=== PATIENT | female | born 1960 | race Caucasian/White ===

== ENCOUNTER → 2017-04-19 | Outpatient (CLI) | payer BC | LOC: OD 07:40 | PROVIDERS: ATTEND Family Medicine | DX: E87.5 Hyperkalemia (principal) | CPT/HCPCS: 36415; 84132 ==

== ENCOUNTER → 2017-10-05 | Outpatient (CLI) | payer BC ==
[2017-10-05 08:37] LABS: ABSOLUTE BASOPHILS # (AUTO) 0.1 10^3/uL (0.0-0.2); ABSOLUTE EOSINOPHILS # (AUTO) 0.1 10^3/uL (0.0-0.6); ABSOLUTE LYMPHOCYTES (AUTO) 2.3 10^3/uL (0.5-4.7); ABSOLUTE MONOCYTES (AUTO) 0.7 10^3/uL (0.1-1.4); ABSOLUTE NEUT (AUTO) 3.4 10^3/uL (1.7-8.2); BASOPHILS % (AUTO) 1.5 % (0-2); EOSINOPHILS % (AUTO) 1.7 % (0-6); HEMATOCRIT 40.6 % (36.0-47.0); LYMPHOCYTES % (AUTO) 34.7 % (13-45); MEAN CORPUSCULAR HGB CONC 34.3 g/dL (32.0-36.0); MEAN CORPUSCULAR VOLUME 85 fl (80-97); PLATELET COUNT 295 10^3/uL (150-450); RED BLOOD COUNT 4.81 10^6/uL (3.72-5.28); SEGMENTED NEUTROPHILS % (AUTO) 51.1 % (42-78); TOTAL CELLS COUNTED % (AUTO) 100 %; WHITE BLOOD COUNT 6.6 10^3/uL (4.0-10.5)
[2017-10-05 09:00] LABS: ALANINE AMINOTRANSFERASE 33 U/L (9-52); ALBUMIN 4.4 g/dL (3.5-5.0); ALKALINE PHOSPHATASE 73 U/L (38-126); ANION GAP 8 (5-19); ASPARTATE AMINO TRANSFERASE 24 U/L (14-36); BILIRUBIN,DIRECT 0.3 mg/dL (0.0-0.4); BILIRUBIN,TOTAL 0.4 mg/dL (0.2-1.3); BLOOD UREA NITROGEN 17 mg/dL (7-20); CALCIUM 9.7 mg/dL (8.4-10.2); CARBON DIOXIDE 29 mmol/L (22-30); CHLORIDE 105 mmol/L (98-107); CHOLESTEROL 274.33 mg/dL (0-200); GLUCOSE 92 mg/dL (75-110); SODIUM 142.2 mmol/L (137-145); TOTAL PROTEIN 7.2 g/dL (6.3-8.2); TRIGLYCERIDES 179 mg/dL (<150)
[2017-10-05 09:13] LABS: DIRECT LDL 171 mg/dL (<100)
[2017-10-05 09:17] LABS: VLDL CHOLESTEROL 35.8 mg/dL (10-31)
[2017-10-05 09:26] LABS: FREE T3 4.24 pg/mL (2.77-5.27); FREE T4 (FREE THYROXINE) 1.35 ng/dL (0.78-2.19)
[2017-10-05 09:40] LABS: THYROID STIMULATING HORMONE 2.01 uIU/mL (0.47-4.68)
[2017-10-05 10:43] LABS: IRON(TIBC) 136.1 ug/dL (37-170)
== END ==
LOC: OD 07:50
PROVIDERS: ATTEND Family Medicine
DX: E61.1 Iron deficiency (principal); E03.9 Hypothyroidism, unspecified; E78.2 Mixed hyperlipidemia; E55.9 Vitamin D deficiency, unspecified; Z79.899 Other long term (current) drug therapy
CPT/HCPCS: 36415; 80053; 80061; 82306; 83540; 83550; 84439; 84443; 84481; 85025

== ENCOUNTER → 2018-06-24 | Outpatient (CLI) | payer BC ==
[2018-06-24 09:01] LABS: CHOLESTEROL 301.48 mg/dL (0-200); IRON(TIBC) 66.6 ug/dL (37-170); TRIGLYCERIDES 158 mg/dL (<150)
[2018-06-24 09:14] LABS: DIRECT LDL 194 mg/dL (<100)
[2018-06-24 09:17] LABS: VLDL CHOLESTEROL 31.6 mg/dL (10-31)
[2018-06-24 09:20] LABS: FREE T3 3.58 pg/mL (2.77-5.27); FREE T4 (FREE THYROXINE) 1.24 ng/dL (0.78-2.19)
[2018-06-24 09:34] LABS: THYROID STIMULATING HORMONE 2.83 uIU/mL (0.47-4.68)
== END ==
LOC: OD 07:48
PROVIDERS: ATTEND Family Medicine
DX: E03.9 Hypothyroidism, unspecified (principal); E78.2 Mixed hyperlipidemia; E61.1 Iron deficiency; E55.9 Vitamin D deficiency, unspecified
CPT/HCPCS: 36415; 80061; 82306; 83540; 83550; 84439; 84443; 84481

== ENCOUNTER → 2018-09-20 | Outpatient (CLI) | payer BC ==
[2018-09-20 09:56] LABS: ABSOLUTE BASOPHILS # (AUTO) 0.1 10^3/uL (0.0-0.2); ABSOLUTE EOSINOPHILS # (AUTO) 0.1 10^3/uL (0.0-0.6); ABSOLUTE LYMPHOCYTES (AUTO) 2.1 10^3/uL (0.5-4.7); ABSOLUTE MONOCYTES (AUTO) 0.6 10^3/uL (0.1-1.4); ABSOLUTE NEUT (AUTO) 2.3 10^3/uL (1.7-8.2); BASOPHILS % (AUTO) 1.9 % (0-2); EOSINOPHILS % (AUTO) 1.4 % (0-6); HEMATOCRIT 41.2 % (36.0-47.0); HEMOGLOBIN 14.4 g/dL (12.0-15.5); LYMPHOCYTES % (AUTO) 40.5 % (13-45); MEAN CORPUSCULAR HEMOGLOBIN 29.9 pg (27.0-33.4); MEAN CORPUSCULAR VOLUME 86 fl (80-97); MONOCYTES % (AUTO) 11.4 % (3-13); PLATELET COUNT 283 10^3/uL (150-450); RED BLOOD COUNT 4.81 10^6/uL (3.72-5.28); RED CELL DISTRIBUTION WIDTH 12.7 % (11.5-14.0); SEGMENTED NEUTROPHILS % (AUTO) 44.8 % (42-78); TOTAL CELLS COUNTED % (AUTO) 100 %; WHITE BLOOD COUNT 5.1 10^3/uL (4.0-10.5)
[2018-09-20 10:18] LABS: CHOLESTEROL 287.48 mg/dL (0-200); TRIGLYCERIDES 171 mg/dL (<150)
[2018-09-20 10:29] LABS: DIRECT LDL 165 mg/dL (<100)
[2018-09-20 10:31] LABS: VLDL CHOLESTEROL 34.2 mg/dL (10-31)
[2018-09-20 10:35] LABS: FREE T3 4.97 pg/mL (2.77-5.27); FREE T4 (FREE THYROXINE) 2.14 ng/dL (0.78-2.19)
[2018-09-20 10:49] LABS: THYROID STIMULATING HORMONE 0.02 uIU/mL (0.47-4.68)
== END ==
LOC: OD 08:17
PROVIDERS: ATTEND Family Medicine
DX: E03.9 Hypothyroidism, unspecified (principal); E78.2 Mixed hyperlipidemia
CPT/HCPCS: 36415; 80061; 84439; 84443; 84481; 85025

== ENCOUNTER → 2018-12-24 | Outpatient (CLI) | payer BC ==
[2018-12-24 09:40] LABS: ALANINE AMINOTRANSFERASE 26 U/L (9-52); ALBUMIN 4.9 g/dL (3.5-5.0); ALKALINE PHOSPHATASE 69 U/L (38-126); ANION GAP 9 (5-19); ASPARTATE AMINO TRANSFERASE 23 U/L (14-36); BILIRUBIN,DIRECT 0.4 mg/dL (0.0-0.4); BILIRUBIN,TOTAL 0.6 mg/dL (0.2-1.3); BLOOD UREA NITROGEN 24 mg/dL (7-20); CALCIUM 10.3 mg/dL (8.4-10.2); CARBON DIOXIDE 28 mmol/L (22-30); CHLORIDE 104 mmol/L (98-107); GLUCOSE 104 mg/dL (75-110); IRON(TIBC) 132.2 ug/dL (37-170); SODIUM 141.1 mmol/L (137-145); TOTAL PROTEIN 7.9 g/dL (6.3-8.2); TRIGLYCERIDES 238 mg/dL (<150)
[2018-12-24 09:41] LABS: POTASSIUM 5.6 mmol/L (3.6-5.0)
[2018-12-24 09:52] LABS: DIRECT LDL 192 mg/dL (<100)
[2018-12-24 09:56] LABS: VLDL CHOLESTEROL 47.6 mg/dL (10-31)
[2018-12-24 09:58] LABS: FREE T3 3.53 pg/mL (2.77-5.27); FREE T4 (FREE THYROXINE) 1.22 ng/dL (0.78-2.19)
[2018-12-24 10:12] LABS: THYROID STIMULATING HORMONE 1.9 uIU/mL (0.47-4.68)
== END ==
LOC: OD 08:20
PROVIDERS: ATTEND Family Medicine
DX: E61.1 Iron deficiency (principal); E78.2 Mixed hyperlipidemia; E03.9 Hypothyroidism, unspecified
CPT/HCPCS: 36415; 80053; 80061; 83540; 83550; 84439; 84443; 84481

== ENCOUNTER → 2019-04-13 | Outpatient (CLI) | payer BC ==
[2019-04-13 08:50] LABS: APPEARANCE,URINE CLEAR; BILIRUBIN,URINE NEGATIVE (NEGATIVE); COLOR,URINE STRAW; GLUCOSE, URINE NEGATIVE (NEGATIVE); KETONES,URINE NEGATIVE (NEGATIVE); LEUKOCYTE ESTERASE,URINE NEGATIVE (NEGATIVE); NITRITE,URINE NEGATIVE (NEGATIVE); PROTEIN,URINE NEGATIVE (NEGATIVE); URINE SPECIFIC GRAVITY 1.003; UROBILINOGEN,URINE NEGATIVE mg/dL (<2.0)
[2019-04-13 09:15] LABS: ABSOLUTE EOSINOPHILS # (AUTO) 0.1 10^3/uL (0.0-0.6); ABSOLUTE LYMPHOCYTES (AUTO) 1.8 10^3/uL (0.5-4.7); ABSOLUTE MONOCYTES (AUTO) 0.7 10^3/uL (0.1-1.4); ABSOLUTE NEUT (AUTO) 2.7 10^3/uL (1.7-8.2); BASOPHILS % (AUTO) 0.9 % (0-2); EOSINOPHILS % (AUTO) 1.8 % (0-6); HEMATOCRIT 41.2 % (36.0-47.0); HEMOGLOBIN 14.1 g/dL (12.0-15.5); LYMPHOCYTES % (AUTO) 33.5 % (13-45); MEAN CORPUSCULAR HEMOGLOBIN 29.3 pg (27.0-33.4); MEAN CORPUSCULAR HGB CONC 34.2 g/dL (32.0-36.0); MEAN CORPUSCULAR VOLUME 86 fl (80-97); MONOCYTES % (AUTO) 12.7 % (3-13); PLATELET COUNT 266 10^3/uL (150-450); RED BLOOD COUNT 4.81 10^6/uL (3.72-5.28); RED CELL DISTRIBUTION WIDTH 12.9 % (11.5-14.0); SEGMENTED NEUTROPHILS % (AUTO) 51.1 % (42-78); TOTAL CELLS COUNTED % (AUTO) 100 %; WHITE BLOOD COUNT 5.3 10^3/uL (4.0-10.5)
[2019-04-13 09:42] LABS: ANION GAP 7 (5-19); BLOOD UREA NITROGEN 17 mg/dL (7-20); CALCIUM 10.2 mg/dL (8.4-10.2); CARBON DIOXIDE 31 mmol/L (22-30); CHLORIDE 102 mmol/L (98-107); GLUCOSE 96 mg/dL (75-110); POTASSIUM 5.5 mmol/L (3.6-5.0)
--- NOTE | 2019-04-13 10:09 | RADIOLOGY REPORT (SQ) ---
EXAM DESCRIPTION: CHEST PA/LATERAL COMPLETED DATE/TIME: 04/13/2019 8:50 am REASON FOR STUDY: PRE-OP COMPARISON: Two-view chest 04/12/2017 EXAM PARAMETERS: NUMBER OF VIEWS: two views TECHNIQUE: Digital Frontal and Lateral radiographic views of the chest acquired. RADIATION DOSE: NA LIMITATIONS: none FINDINGS: LUNGS AND PLEURA: No opacities, masses or pneumothorax. No pleural effusion. MEDIASTINUM AND HILAR STRUCTURES: No masses or contour abnormalities. HEART AND VASCULAR STRUCTURES: Heart normal size. No evidence for failure. BONES: No acute findings. HARDWARE: None in the chest. OTHER: No other significant finding. IMPRESSION: NO SIGNIFICANT RADIOGRAPHIC FINDING IN THE CHEST. TECHNICAL DOCUMENTATION: JOB ID: [id number] [employer]- All Rights Reserved Reading location - IP/workstation name: [email or web address]
--- NOTE | 2019-04-13 21:45 | EKG REPORT ---
SEVERITY:- NORMAL ECG - SINUS RHYTHM : Confirmed by: Nai Marks MD 13-Apr-2019 21:45:24
== END ==
LOC: OD 07:57
PROVIDERS: ATTEND Orthopaedic Surgery
DX: Z01.810 Encounter for preprocedural cardiovascular examination (principal); Z01.811 Encounter for preprocedural respiratory examination; Z01.812 Encounter for preprocedural laboratory examination; M17.11 Unilateral primary osteoarthritis, right knee
CPT/HCPCS: 36415; 71046; 80048; 81001; 85025; 93005; 93010

== ENCOUNTER 2019-05-08 05:35 | Inpatient (IN) | payer BC ==
[~2019-05-08 05:35] MED LIST: BUPIVACAINE INJ/PF LIPOSOME/PF 266 MG/20 ML SDV INJ PRN; CEFAZOLIN INJ 1 GM VIAL IV PRN; IBUPROFEN 800 MG in NORMAL SALINE 250 ML IV PRN; LACTATED RINGERS 1000 ML IV PRN; LIDOCAINE 0.5% INJ-PF (5 MG/ML) 50 ML SDV SUBCUT PRN; OXYCODONE HCL SR 10 MG TABLET PO PRN; PANTOPRAZOLE SODIUM 20 MG TABLET.DR PO PRN; VANCOMYCIN HCL 1,000 MG in DEXTROSE 5%-WATER 250 ML IV PRN; VANCOMYCIN HCL INJ 1000 MG VIAL ONE
[2019-05-08] MEDS ORDERED: TRANEXAMIC ACID INJ/PF 1,000 MG/10 ML SDV ONE ×2 (06:19→09:47)
[2019-05-08] MEDS ORDERED: MIDAZOLAM 2 MG/2 ML INJ ONE ×2 (06:19→09:03)
[2019-05-08] MEDS ORDERED: ONDANSETRON HCL INJ/PF 4 MG/2 ML SDV ONE (06:19)
[2019-05-08] MEDS ORDERED: OXYCODONE HCL SR 10 MG TABLET PO ONE (06:19)
[2019-05-08] MEDS ORDERED: PANTOPRAZOLE SODIUM 20 MG TABLET.DR PO ONE (06:19)
[2019-05-08] MEDS ORDERED: CEFAZOLIN INJ 1 GM VIAL ONE (06:19)
[2019-05-08] MEDS ORDERED: DEXAMETHASONE SOD PHOSPHATE INJ 4 MG/1 ML VIAL ONE (06:19)
[2019-05-08] MEDS ORDERED: PROPOFOL INJ 200 MG/20 ML VIAL IV ONE ×2 (06:19→09:03)
[2019-05-08] MEDS ORDERED: FENTANYL CITRATE INJ/PF 100 MCG/2 ML AMPUL ONE (06:19)
[2019-05-08] MEDS ORDERED: LIDOCAINE 0.5% INJ-PF (5 MG/ML) 50 ML SDV ONE (06:22)
[2019-05-08] MEDS ORDERED: BUPIVACAINE HCL 0.25 % INJ/PF (2.5 MG/1 ML) 30 ML VIAL ONE (07:11)
[2019-05-08] MEDS ORDERED: ONDANSETRON HCL INJ/PF 4 MG/2 ML SDV IV PRN (08:01)
[2019-05-08] MEDS ORDERED: FENTANYL CITRATE INJ/PF 100 MCG/2 ML AMPUL IV PRN ×3 (08:01)
[2019-05-08] MEDS ORDERED: PROMETHAZINE HCL INJ 25 MG/1 ML VIAL IV PRN ×2 (08:01)
[2019-05-08] MEDS ORDERED: MORPHINE SULFATE 10 MG/ML INJ IV PRN (08:01)
[2019-05-08] MEDS ORDERED: DIPHENHYDRAMINE HCL 50 MG/ML VIAL IV PRN ×2 (08:01→08:33)
[2019-05-08] MEDS ORDERED: MEPERIDINE HCL/PF INJ 25 MG/1 ML DISP.SYRIN IV PRN (08:01)
[2019-05-08] MEDS ORDERED: BUPIVACAINE HCL 0.25 % INJ/PF (2.5 MG/1 ML) 30 ML VIAL INJ ONE (08:29)
[2019-05-08] MEDS ORDERED: FLUTICASONE NASAL SPRAY 50 MCG/SPRY 120 SPRAY/16 GM NAREB PRN (08:32)
[2019-05-08] MEDS ORDERED: MAG HYDROX/AL HYDROX/SIMETH SUSP 30 ML UDCUP PO PRN (08:33)
[2019-05-08] MEDS ORDERED: ONDANSETRON 4 MG TAB.RAPDIS PO PRN (08:33)
[2019-05-08] MEDS ORDERED: RINGERS SOLUTION,LACTATED 1,000 ML IV PRN (08:33)
--- NOTE | 2019-05-08 08:38 | Operative Report ---
Operative Report DATE OF SURGERY: 05/08/19 PREOPERATIVE DIAGNOSIS: Right knee arthritis OPERATION: Right knee arthroplasty SURGEON: JEANNIE QUESADA ANESTHESIA: Spinal TISSUE REMOVED OR ALTERED: Bone to pathology ESTIMATED BLOOD LOSS: 50 PROCEDURE: Implants used: Femur: Size 4 [place] triathlon uncemented cruciate retaining femur Tibia: 4 tibia uncemented Tibial liner: 11 mm CS insert Patella: 32 mm oval uncemented patella Procedure with the patient supine on the operating table the right the limb is prepped and draped in a sterile fashion. The limb was elevated for exsanguination and the tourniquet inflated to 280 torr. A standard midline median parapatellar approach the knee is taken. Access is gained to the femoral canal through the intercondylar notch. Intramedullary alignment instrumentation used to resect 10 mm of distal femur in 5 of valgus. Sizing guide indicated a size 4 femur. Appropriate cutting jig is then used to fashion anterior posterior and chamfer cuts. A trial reduction femurs performed and this is judged to be adequate. Attention was next turned to the tibia. Using an extra medullary alignment system 9 millimeters was resected off the lateral tibial plateau. This is sized to a size 4 tibia. A trial reduction was now performed with a 4 femur and a 4 tibia using a 11 millimeters spacer. It is full extension and central pat ellofemoral tracking. The articular surface the patella was next resected using an oscillating saw. All trial implants were removed. The above implants are impacted into position. The tourniquet was deflated hemostasis obtained the wound is then closed in layers using interrupted Vicryl followed by eliseo. A sterile compressive dressing was applied and the patient returned to recovery room in satisfactory condition.
--- NOTE | 2019-05-08 09:34 | RADIOLOGY REPORT (SQ) ---
EXAM DESCRIPTION: KNEE RIGHT 2 VIEWS COMPLETED DATE/TIME: 05/08/2019 9:16 am REASON FOR STUDY: Post OP -Long Cassette in PACU M17.11 UNILATERAL PRIMARY OSTEOARTHRITIS, RIGHT KN EE COMPARISON: None. NUMBER OF VIEWS: Two views. TECHNIQUE: AP and lateral radiographic images acquired of the right knee. LIMITATIONS: None. FINDINGS: MINERALIZATION: Normal. BONES: Status post TKA; the hardware is in appropriate alignment. There is no periprostatic fracture . JOINT: See below. SOFT TISSUES: The subcutaneous and intra-articular air is expected in the immediate postoperative per iod. OTHER: No other finding. IMPRESSION: Status post right TKA with expected immediate postoperative findings. TECHNICAL DOCUMENTATION: JOB ID: [id number] [employer]- All Rights Reserved Reading location - IP/workstation name: [email or web address]
[2019-05-08] MEDS ORDERED: VITAMIN D3 PO SCH (10:00)
[2019-05-08] MEDS ORDERED: (PENDING PHARMACY ID) (Cholecalciferol (Vitamin D3) [Vitamin D3] 1,000 UNIT) PO SCH (10:00)
[2019-05-08] MEDS ORDERED: CALCIUM CITRATE PO SCH (10:00)
[2019-05-08] MEDS ORDERED: (PENDING PHARMACY ID) (Krill Oil [Krill Oil] 500 MG) PO SCH (10:00)
[2019-05-08] MEDS: OXYCODONE HCL IR 5 MG TABLET PO PRN ×2 (12:11→18:14)
[2019-05-08] MEDS ORDERED: IBUPROFEN INJ 800 MG/8 ML VIAL IV SCH (14:00)
[2019-05-08] MEDS: IBUPROFEN 800 MG in NORMAL SALINE 250 ML IV SCH (14:40)
[2019-05-08] MEDS: OXYCODONE HCL SR 10 MG TABLET PO SCH (17:03)
[2019-05-08] MEDS: SENNOSIDES/DOCUSATE 8.6-50 MG 1 EACH TABLET PO SCH (17:03)
[2019-05-08] MEDS ORDERED: ASPIRIN 81 MG TABLET, ENT COATED PO SCH (18:00)
[2019-05-08] MEDS ORDERED: VANCOMYCIN HCL 1,000 MG in DEXTROSE 5%-WATER 250 ML IV ONE (21:00)
[2019-05-08] MEDS: OXYBUTYNIN CHLORIDE 5 MG TABLET PO SCH (21:40)
[2019-05-09] MEDS: OXYCODONE HCL IR 5 MG TABLET PO PRN ×2 (00:20→11:36)
[2019-05-09] MEDS: IBUPROFEN 800 MG in NORMAL SALINE 250 ML IV SCH ×2 (00:48→05:33)
[2019-05-09 05:08] LABS: HEMATOCRIT 34.7 % (36.0-47.0); HEMOGLOBIN 11.8 g/dL (12.0-15.5); MEAN CORPUSCULAR HEMOGLOBIN 29.7 pg (27.0-33.4); MEAN CORPUSCULAR VOLUME 87 fl (80-97); PLATELET COUNT 181 10^3/uL (150-450); RED BLOOD COUNT 3.98 10^6/uL (3.72-5.28); RED CELL DISTRIBUTION WIDTH 13.2 % (11.5-14.0); WHITE BLOOD COUNT 6.8 10^3/uL (4.0-10.5)
[2019-05-09 05:28] LABS: ANION GAP 6 (5-19); BLOOD UREA NITROGEN 8 mg/dL (7-20); CALCIUM 8.7 mg/dL (8.4-10.2); CARBON DIOXIDE 25 mmol/L (22-30); CHLORIDE 105 mmol/L (98-107); GLUCOSE 121 mg/dL (75-110); POTASSIUM 3.7 mmol/L (3.6-5.0)
[2019-05-09] MEDS: OXYCODONE HCL SR 10 MG TABLET PO SCH (05:32)
[2019-05-09] MEDS ORDERED: PANTOPRAZOLE SODIUM 40 MG TABLET.DR PO SCH (06:00)
[2019-05-09] MEDS ORDERED: LEVOTHYROXINE SODIUM 0.1 MG TABLET PO SCH (06:00)
--- NOTE | 2019-05-09 07:04 | PDOC DISCHARGE SUMMARY ---
Impression - Admit/DC Date/PCP Admission Date/Primary Care Provider: 05/08/19 05:35 RAMESH SOTO MD Discharge Date: 05/09/19 - Discharge Diagnosis (1) Arthritis of right knee Is this a current diagnosis for this admission?: Yes - Additional Information Resuscitation Status: Full Code Discharge Diet: Regular Discharge Activity: Balance Activity w/Rest, No Driving, No tub bath Referrals: RAMESH SOTO MD [Primary Care Provider] - JEANNIE QUESADA MD [ACTIVE STAFF] - 05/23/19 11:00 am Home Medications: Calcium Citrate/Vitamin D3 [Citracal + D Maximum Caplet] 1 tab PO DAILY 04/12/17 Cholecalciferol (Vitamin D3) [Vitamin D3] 1,000 unit PO DAILY 04/12/17 Krill Oil 500 mg PO DAILY 04/12/17 Levothyroxine Sodium 100 mcg PO Q6AM 04/12/17 Oxybutynin Chloride [Oxybutynin Chloride ER] 10 mg PO DAILY 04/12/17 Tramadol HCl 50 mg PO Q6HP PRN 04/12/17 Multivitamin [Tab-A-Robbie (Multiple Vitamin) Tablet] 1 tab PO DAILY 05/07/17 Fluticasone Propionate [Flonase Nasal [place] 50 Mcg/[place] 16 gm] 2 spray NAREB DAILYP PRN 05/10/17 History of Present Illiness History of Present Illness: PAULO MARTEL is a 58 year old female status post left knee arthroplasty in the distant past now with progressive right knee pain and functional disability second osteoarthritis. Patient is admitted for elective left knee arthroplasty. Hospital Course Hospital Course: Patient is admitted through the operating where she undergoes an uncomplicated right knee arthroplasty. She is returned to floor in satisfactory condition. She makes excellent progress with physical therapy and the day of surgery. She is ready for discharge the following morning. Physical Exam Vital Signs: Temp Pulse Resp BP Pulse Ox 37.1 C 61 18 121/57 L 97 05/09/19 00:00 05/09/19 00:00 05/09/19 00:00 05/09/19 00:00 05/09/19 00:00 Intake & Output 05/08/19 05/09/19 05/10/19 06:59 06:59 06:59 Intake Total 0 3400 Output Total 40 Balance 0 3360 Weight 81.8 kg General appearance: PRESENT: no acute distress, mild distress Head exam: PRESENT: normocephalic Respiratory exam: PRESENT: unlabored Cardiovascular exam: PRESENT: RRR Pulses: PRESENT: +1 pedal pulses bilateral GI/Abdominal exam: PRESENT: soft Rectal exam: PRESENT: deferred Musculoskeletal exam: PRESENT: other - Right knee compressive dressing removed on the first postoperative morning. Underlying OpSite dressings clean dry and intact. Minimal pedal edema. Distal neurovascular examination is intact. Neurological exam: PRESENT: alert, awake, oriented to person, oriented to place, oriented to time, oriented to situation. ABSENT: motor sensory deficit Psychiatric exam: PRESENT: appropriate affect, normal mood. ABSENT: homicidal ideation, suicidal ideation Skin exam: PRESENT: dry, intact, warm. ABSENT: cyanosis, rash Results Laboratory Results: WBC 6.8 10^3/uL (4.0-10.5) 05/09/19 04:36 RBC 3.98 10^6/uL (3.72-5.28) 05/09/19 04:36 Hgb 11.8 g/dL (12.0-15.5) L 05/09/19 04:36 Hct 34.7 % (36.0-47.0) L 05/09/19 04:36 MCV 87 fl (80-97) 05/09/19 04:36 MCH 29.7 pg (27.0-33.4) 05/09/19 04:36 MCHC 34.0 g/dL (32.0-36.0) 05/09/19 04:36 RDW 13.2 % (11.5-14.0) 05/09/19 04:36 Plt Count 181 10^3/uL (150-450) 05/09/19 04:36 Sodium 136.4 mmol/L (137-145) L 05/09/19 04:36 Potassium 3.7 mmol/L (3.6-5.0) 05/09/19 04:36 Chloride 105 mmol/L (98-107) 05/09/19 04:36 Carbon Dioxide 25 mmol/L (22-30) 05/09/19 04:36 Anion Gap 6 (5-19) 05/09/19 04:36 BUN 8 mg/dL (7-20) 05/09/19 04:36 Creatinine 0.56 mg/dL (0.52-1.25) 05/09/19 04:36 Est GFR ( Amer) > 60 (>60) 05/09/19 04:36 Est GFR (MDRD) Non-Af > 60 (>60) 05/09/19 04:36 Glucose 121 mg/dL (75-110) H 05/09/19 04:36 Calcium 8.7 mg/dL (8.4-10.2) 05/09/19 04:36 Impressions: Knee X-Ray 05/08/19 08:35 IMPRESSION: Status post right TKA with expected immediate postoperative findings. Plan Plan of Treatment: Patient be discharged home on a weightbearing as tolerated basis with home hea lth services and DME. Follow-up with Dr. Tali Orozco Lund for surgery in 2 weeks for staple removal. Stroke Is this a Stroke Patient?: No Stroke Pt being discharged on Anti-thrombolytic therapy?: Yes Acute Heart Failure - Is this a Heart Failure Patient?: No
[2019-05-09] MEDS ORDERED: CALCIUM CARBONATE 250 MG/VITAMIN D3 125 UNIT TABLET PO SCH (08:00)
[2019-05-09] MEDS ORDERED: MULTIVITAMIN TABLET PO SCH (10:00)
[2019-05-09] MEDS ORDERED: CHOLECALCIFEROL (D3) 1,000 UNIT (25 MCG) TABLET PO SCH (10:00)
[2019-05-09] MEDS ORDERED: PRENATAL VITAMIN W DHA CAPSULE PO SCH (10:00)
[2019-05-09] MEDS: SENNOSIDES/DOCUSATE 8.6-50 MG 1 EACH TABLET PO SCH (10:45)
[2019-05-09] MEDS: OXYBUTYNIN CHLORIDE 5 MG TABLET PO SCH (10:45)
[2019-05-09 13:06] VITALS: BP 121/57
== END 2019-05-09 13:40 | disposition home health service (06) | DRG 470 ==
LOC: INOR 05:35 → 4S 10:26
PROVIDERS: ADMIT Orthopaedic Surgery; ATTEND Orthopaedic Surgery
PROC: 0SRC0JA Replacement of Right Knee Joint with Synthetic Substitute, Uncemented, Open Approach (ICD-10-PCS; principal; 2019-05-08 07:30)
DX: M17.11 Unilateral primary osteoarthritis, right knee (principal); K21.9 Gastro-esophageal reflux disease without esophagitis; E03.9 Hypothyroidism, unspecified; Z87.891 Personal history of nicotine dependence; Z96.652 Presence of left artificial knee joint; M54.5 Low back pain; Z79.899 Other long term (current) drug therapy
CPT/HCPCS: 01402; 36415; 80048; 84132; 85027; 88305; 88311; 94799; C1713; C1776; J0690; J1100; J1741; J2250; J2405; J2704; J3010; J3370; J3490; J7050; J7060; J7120; S0119

== ENCOUNTER 2019-05-16 22:12 | Emergency (ER) | payer BC ==
[2019-05-16 22:58] LABS: ABSOLUTE BASOPHILS # (AUTO) 0.1 10^3/uL (0.0-0.2); ABSOLUTE LYMPHOCYTES (AUTO) 0.9 10^3/uL (0.5-4.7); ABSOLUTE MONOCYTES (AUTO) 1.3 10^3/uL (0.1-1.4); BASOPHILS % (AUTO) 0.5 % (0-2); EOSINOPHILS % (AUTO) 0.1 % (0-6); HEMATOCRIT 36.4 % (36.0-47.0); HEMOGLOBIN 12.7 g/dL (12.0-15.5); INTERNATIONAL RATION (INR) 0.95; LYMPHOCYTES % (AUTO) 6.4 % (13-45); MEAN CORPUSCULAR HEMOGLOBIN 29.8 pg (27.0-33.4); MEAN CORPUSCULAR HGB CONC 34.8 g/dL (32.0-36.0); MEAN CORPUSCULAR VOLUME 86 fl (80-97); MONOCYTES % (AUTO) 9.3 % (3-13); PLATELET COUNT 459 10^3/uL (150-450); PROTHROMBIN TIME 12.6 SEC (11.4-15.4); RED BLOOD COUNT 4.25 10^6/uL (3.72-5.28); RED CELL DISTRIBUTION WIDTH 12.9 % (11.5-14.0); SEGMENTED NEUTROPHILS % (AUTO) 83.7 % (42-78); TOTAL CELLS COUNTED % (AUTO) 100 %; WHITE BLOOD COUNT 14.3 10^3/uL (4.0-10.5)
--- NOTE | 2019-05-16 23:18 | ER Document Report ---
ED Fever - General Chief Complaint: Fever Stated Complaint: POST OP ISSUES Time Seen by Provider: 05/16/19 23:01 Primary Care Provider: JEANNIE QUESADA MD [ACTIVE STAFF] - Follow up as needed TRAVEL OUTSIDE OF THE [place] IN LAST 30 DAYS: No - Related Data Allergies/Adverse Reactions: No Known Allergies Allergy (Verified 05/08/19 05:52) Home Medications: asa 81. tylenol. oxybutin. stool softner. motrin. oxycodone 5 mg Past Medical History - Social History Smoking Status: Never Smoker Frequency of alcohol use: None Family History: None - Noncontributory Patient has suicidal ideation: No Patient has homicidal ideation: No - Past Medical History Cardiac Medical History: Denies: Hx Heart Attack, Hx Hypertension Pulmonary Medical History: Denies: Hx Asthma, Hx Bronchitis, Hx COPD, Hx Sleep Apnea Neurological Medical History: Denies: Hx Cerebrovascular Accident, Hx Seizures Endocrine Medical History: Reports: Hx Hypothyroidism. Denies: Hx Graves' Disease, Hx Hyperthyroidism Renal/ Medical History: Denies: Hx End Stage Renal Disease, Hx Kidney Stones, Hx Peritoneal Dialysis GI Medical History: Denies: Hx Gastroesophageal Reflux Disease Musculoskeletal Medical History: Reports Hx Arthritis, Denies Hx Fibromyalgia, Denies Hx Muscular Dystrophy, Denies Hx Systemic Lupus Erythematosus Psychiatric Medical History: Denies: Hx Bipolar Disorder, Hx Depression, Hx Post Traumatic Stress Disorder Traumatic Medical History: Denies: Hx Fractures Past Surgical History: Reports: Hx Tubal Ligation. Denies: Hx Appendectomy, Hx Bowel Surgery, Hx Section, Hx Cholecystectomy, Hx Coronary Artery Bypas s Graft, Hx Gastric Bypass Surgery, Hx Herniorrhaphy, Hx Hysterectomy, Hx Mastectomy, Hx Pacemaker, Hx Tonsillectomy - Immunizations Hx Pneumococcal Vaccination: 04/11/17 Physical Exam - Vital signs Vitals: Temp Pulse Resp BP Pulse Ox 99.5 F 109 H 18 130/69 H 96 05/16/19 22:19 05/16/19 22:19 05/16/19 22:19 05/16/19 22:19 05/16/19 22:19 - Notes Notes: Patient presents emergency department complaining of fever and chills for the past 2 days. Had a little bit of nausea with this. She denies any headaches sore throat runny nose chest pain shortness of breath cough vomiting abdominal pain diarrhea Curia. She is urinating more than usual burning and frequency. Remembers indicate they felt her right knee was the warmer than the left earlier today. Has been up ambulating. She is status post knee replacement on May 08 and was discharged home the following day. Pain is decreased dramatically over the past several days he has been up ambulating not sent home on anticoagulant His medical history significant for hypothyroidism PHYSICAL EXAMINATION: Vital signs are noted there is no reviewed GENERAL: Well-appearing, well-nourished and in no acute distress. HEAD: Atraumatic, normocephalic. EYES: Pupils equal round and reactive to light, extraocular movements intact, sclera anicteric, conjunctiva are normal. ENT: nares patent, oropharynx clear without exudates. Moist mucous membranes. NECK: Normal range of motion, supple without lymphadenopathy LUNGS: Breath sounds clear to auscultation bilaterally and equal. No wheezes rales or rhonchi. HEART: Regular rate and rhythm by me ABDOMEN: Soft, nontender, normoactive bowel sounds. No guarding, no rebound. No masses appreciated. EXTREMITIES: The right lower extremity she has a dressing in place with a well- healing scar. Minimal amount of swelling and tenderness. It may be slightly warm the opposite leg trace edema in her ankle. There is no palpable cords in the calf thigh or in the popliteal area and is minimal swelling of the knee. She can flex the knee to about 70 degrees which she said is what she is been doing for the past day or 2 NEUROLOGICAL: No focal neurological deficits. Moves all extremities spontaneously and on command. PSYCH: Normal mood, normal affect. SKIN: Warm, Dry, normal turgor, no rashes or lesions noted. Back is nontender Course - Re-evaluation Re-evalutation: 05/17/19 02:31 ED patient is remained stable she was given a dose of her oxycodone. As well as 1 g of Rocephin Medical decision-making patient presents with fever and frequent urination does have evidence of UTI. No CVA tenderness is not vomiting she looks well and actually to be managed as an outpatient. - Vital Signs Vital signs: Temp Pulse Resp BP Pulse Ox 99.5 F 109 H 17 140/70 H 97 05/16/19 22:19 05/16/19 22:19 05/16/19 23:06 05/16/19 23:06 05/16/19 23:06 - Laboratory Result Diagrams: 05/16/19 22:30 05/16/19 22:30 Laboratory results interpreted by me: 05/16/19 05/16/19 05/16/19 22:30 22:30 23:03 WBC 14.3 H Plt Count 459 H Lymph % (Auto) 6.4 L Absolute Neuts (auto) 12.0 H Seg Neutrophils % 83.7 H Glucose 122 H Urine Ketones TRACE H Urine Blood SMALL H Urine Nitrite (Reflex) POSITIVE H Leukocyte Esterase Rfl LARGE H - Diagnostic Test Radiology reviewed: Image reviewed - Chest x-ray read by me shows no acute i nfiltrate. X-rays of the knee shows no bony abnormalities or significant effusion - EKG Interpretation by Me Additional EKG results interpreted by me: 05/16/19 23:18 She read by me shows normal sinus rhythm with a rate of 97 axis and QRS and no nonspecific changes Discharge - Discharge Clinical Impression: Pyelonephritis Disposition: HOME, SELF-CARE Instructions: Pyelonephritis ([facility]) Additional Instructions: Please review the discharge instructions Drink plenty of fluids Follow-up with your family doctor in 2 to 3 days if not better otherwise in 2 weeks. Return to the ED if you get worse Prescriptions: Cefdinir [Omnicef 300 mg Capsule] 1 cap PO BID #14 capsule Referrals: JEANNIE QUESADA MD [ACTIVE STAFF] - Follow up as needed
[2019-05-16 23:20] LABS: ALBUMIN 3.9 g/dL (3.5-5.0); ALKALINE PHOSPHATASE 91 U/L (38-126); ANION GAP 12 (5-19); ASPARTATE AMINO TRANSFERASE 27 U/L (14-36); BILIRUBIN,DIRECT 0.2 mg/dL (0.0-0.4); BILIRUBIN,TOTAL 0.7 mg/dL (0.2-1.3); BLOOD UREA NITROGEN 10 mg/dL (7-20); CALCIUM 9.6 mg/dL (8.4-10.2); CARBON DIOXIDE 22 mmol/L (22-30); CHLORIDE 103 mmol/L (98-107); GLUCOSE 122 mg/dL (75-110); POTASSIUM 4.3 mmol/L (3.6-5.0); TOTAL PROTEIN 7.1 g/dL (6.3-8.2)
[2019-05-16 23:42] LABS: APPEARANCE,URINE CLEAR; BILIRUBIN,URINE NEGATIVE (NEGATIVE); COLOR,URINE YELLOW; GLUCOSE, URINE NEGATIVE (NEGATIVE); KETONES,URINE TRACE mg/dL (NEGATIVE); PROTEIN,URINE NEGATIVE (NEGATIVE); URINE SPECIFIC GRAVITY 1.002; UROBILINOGEN,URINE NEGATIVE mg/dL (<2.0)
[2019-05-17 00:27] LABS: A TYPE INFLUENZA AG NEGATIVE (NEGATIVE); B INFLUENZA AG NEGATIVE (NEGATIVE)
[2019-05-17] MEDS ORDERED: CEFTRIAXONE INJ 1000 MG VIAL IV ONE (01:56)
[2019-05-17] MEDS ORDERED: OXYCODONE HCL IR 5 MG TABLET PO ONE (02:26)
[2019-05-17] MEDS ORDERED: IBUPROFEN 400 MG TABLET PO ONE (02:27)
[2019-05-17 03:18] VITALS: BP 120/59
--- NOTE | 2019-05-17 13:37 | RADIOLOGY REPORT (SQ) ---
EXAM DESCRIPTION: KNEE RIGHT 4 VIEWS COMPLETED DATE/TIME: 05/16/2019 11:50 pm REASON FOR STUDY: Postop pain postop COMPARISON: 05/08/2019 NUMBER OF VIEWS: Four views. TECHNIQUE: AP, lateral, and both oblique radiographic images acquired of the right knee. LIMITATIONS: None. FINDINGS: MINERALIZATION: Normal. BONES: No acute fracture or dislocation. No worrisome bone lesions. No significant osteophytes. JOINT: There is been a total knee arthroplasty. Skin clips remain in place. Mild soft tissue edema. Probable small joint effusion. Hardware is intact. OTHER: No other significant finding. IMPRESSION: Postsurgical changes. Small joint effusion. No other significant findings in this post operative knee. TECHNICAL DOCUMENTATION: JOB ID: [id number] [employer]- All Rights Reserved Reading location - IP/workstation name: [email or web address]
--- NOTE | 2019-05-17 13:40 | RADIOLOGY REPORT (SQ) ---
EXAM DESCRIPTION: XR CHEST 2 VIEWS COMPLETED DATE/TME: 05/16/2019 CLINICAL HISTORY: 58 years, Female, FEVER COMPARISON: Prior study from 04/13/2019 NUMBER OF VIEWS: Two TECHNIQUE: Frontal and lateral radiograph of the chest were acquired LIMITATIONS: None. FINDINGS: Cardiac and mediastinal contours are normal in appearance. Lungs are clear. No pleural effusion or pneumothorax. IMPRESSION: No acute disease. copyright 2010 [employer]- All Rights Reserved
--- NOTE | 2019-05-17 23:56 | EKG REPORT ---
SEVERITY:- ABNORMAL ECG - SINUS RHYTHM PROBABLE LEFT ATRIAL ABNORMALITY PROBABLE LEFT VENTRICULAR HYPERTROPHY : Confirmed by: Luiz Pascual 17-May-2019 23:55:46
== END 2019-05-17 03:18 | disposition home or self-care (01) ==
LOC: ER 22:12
DX: N12 Tubulo-interstitial nephritis, not specified as acute or chronic (principal); R50.9 Fever, unspecified; Z79.899 Other long term (current) drug therapy
CPT/HCPCS: 93005; 36415; 87040; 87086; 85025; 85610; 87088; 80053; 81001; 83605; 87804; 71046; 73564; 93010; J3490; J0696; 87186

== ENCOUNTER → 2019-05-26 | Outpatient (CLI) | payer BC ==
[2019-05-26 13:21] LABS: ABSOLUTE BASOPHILS # (AUTO) 0.1 10^3/uL (0.0-0.2); ABSOLUTE EOSINOPHILS # (AUTO) 0.1 10^3/uL (0.0-0.6); ABSOLUTE LYMPHOCYTES (AUTO) 2.1 10^3/uL (0.5-4.7); ABSOLUTE MONOCYTES (AUTO) 0.7 10^3/uL (0.1-1.4); ABSOLUTE NEUT (AUTO) 5.2 10^3/uL (1.7-8.2); BASOPHILS % (AUTO) 1.5 % (0-2); EOSINOPHILS % (AUTO) 0.6 % (0-6); HEMATOCRIT 39.2 % (36.0-47.0); HEMOGLOBIN 13.3 g/dL (12.0-15.5); LYMPHOCYTES % (AUTO) 25.4 % (13-45); MEAN CORPUSCULAR HEMOGLOBIN 29.5 pg (27.0-33.4); MEAN CORPUSCULAR HGB CONC 34.1 g/dL (32.0-36.0); MEAN CORPUSCULAR VOLUME 87 fl (80-97); MONOCYTES % (AUTO) 9.1 % (3-13); PLATELET COUNT 633 10^3/uL (150-450); RED BLOOD COUNT 4.52 10^6/uL (3.72-5.28); RED CELL DISTRIBUTION WIDTH 13.5 % (11.5-14.0); SEGMENTED NEUTROPHILS % (AUTO) 63.4 % (42-78); TOTAL CELLS COUNTED % (AUTO) 100 %; WHITE BLOOD COUNT 8.1 10^3/uL (4.0-10.5)
[2019-05-27 13:37] LABS: CREATININE URINE 112.4 mg/dL (Not Estab.); MICROALBUMIN URINE 8.2 ug/mL (Not Estab.)
== END ==
LOC: OD 11:34
PROVIDERS: ATTEND Family Medicine
DX: N10 Acute pyelonephritis (principal)
CPT/HCPCS: 36415; 82043; 82570; 85025; 87086; 87088; 87186

== ENCOUNTER → 2019-12-30 | Outpatient (CLI) | payer BC ==
[2019-12-30 12:35] LABS: ABSOLUTE BASOPHILS # (AUTO) 0.1 10^3/uL (0.0-0.2); ABSOLUTE LYMPHOCYTES (AUTO) 1.6 10^3/uL (0.5-4.7); ABSOLUTE MONOCYTES (AUTO) 0.6 10^3/uL (0.1-1.4); ABSOLUTE NEUT (AUTO) 5.3 10^3/uL (1.7-8.2); BASOPHILS % (AUTO) 1.1 % (0-2); EOSINOPHILS % (AUTO) 0.6 % (0-6); HEMATOCRIT 43.4 % (36.0-47.0); HEMOGLOBIN 15.1 g/dL (12.0-15.5); LYMPHOCYTES % (AUTO) 20.7 % (13-45); MEAN CORPUSCULAR HEMOGLOBIN 29.5 pg (27.0-33.4); MEAN CORPUSCULAR HGB CONC 34.9 g/dL (32.0-36.0); MEAN CORPUSCULAR VOLUME 85 fl (80-97); MONOCYTES % (AUTO) 8.3 % (3-13); PLATELET COUNT 291 10^3/uL (150-450); RED BLOOD COUNT 5.13 10^6/uL (3.72-5.28); RED CELL DISTRIBUTION WIDTH 13.4 % (11.5-14.0); SEGMENTED NEUTROPHILS % (AUTO) 69.3 % (42-78); TOTAL CELLS COUNTED % (AUTO) 100 %; WHITE BLOOD COUNT 7.6 10^3/uL (4.0-10.5)
[2019-12-30 12:57] LABS: ALBUMIN 4.8 g/dL (3.5-5.0); ALKALINE PHOSPHATASE 92 U/L (38-126); ANION GAP 11 (5-19); ASPARTATE AMINO TRANSFERASE 28 U/L (14-36); BILIRUBIN,TOTAL 0.8 mg/dL (0.2-1.3); BLOOD UREA NITROGEN 13 mg/dL (7-20); CALCIUM 9.9 mg/dL (8.4-10.2); CARBON DIOXIDE 25 mmol/L (22-30); CHLORIDE 101 mmol/L (98-107); GLUCOSE 105 mg/dL (75-110); IRON(TIBC) 103.6 ug/dL (37-170); POTASSIUM 4.4 mmol/L (3.6-5.0); TOTAL PROTEIN 7.6 g/dL (6.3-8.2)
[2019-12-30 13:13] LABS: FREE T3 4.05 pg/mL (2.77-5.27); FREE T4 (FREE THYROXINE) 1.49 ng/dL (0.78-2.19)
[2019-12-30 13:27] LABS: THYROID STIMULATING HORMONE 0.65 uIU/mL (0.47-4.68)
[2020-01-01 08:53] LABS: CHOLESTEROL 286.36 mg/dL (0-200); TRIGLYCERIDES 217 mg/dL (<150)
[2020-01-01 09:05] LABS: DIRECT LDL 164 mg/dL (<100)
[2020-01-01 09:06] LABS: VLDL CHOLESTEROL 43.4 mg/dL (10-31)
== END ==
LOC: OD 11:52
PROVIDERS: ATTEND Family Medicine
DX: E03.9 Hypothyroidism, unspecified (principal); E61.1 Iron deficiency; E78.2 Mixed hyperlipidemia; E55.9 Vitamin D deficiency, unspecified
CPT/HCPCS: 36415; 80053; 80061; 82306; 83540; 83550; 84439; 84443; 84481; 85025

== ENCOUNTER → 2020-07-20 | Outpatient (CLI) | payer BC ==
[2020-07-20 10:26] LABS: ABSOLUTE BASOPHILS # (AUTO) 0.1 10^3/uL (0.0-0.2); ABSOLUTE EOSINOPHILS # (AUTO) 0.1 10^3/uL (0.0-0.6); ABSOLUTE LYMPHOCYTES (AUTO) 2.2 10^3/uL (0.5-4.7); ABSOLUTE MONOCYTES (AUTO) 0.8 10^3/uL (0.1-1.4); ABSOLUTE NEUT (AUTO) 2.7 10^3/uL (1.7-8.2); BASOPHILS % (AUTO) 1.8 % (0-2); EOSINOPHILS % (AUTO) 2.4 % (0-6); HEMATOCRIT 37.9 % (36.0-47.0); LYMPHOCYTES % (AUTO) 37.4 % (13-45); MEAN CORPUSCULAR HEMOGLOBIN 29.8 pg (27.0-33.4); MEAN CORPUSCULAR HGB CONC 34.4 g/dL (32.0-36.0); MEAN CORPUSCULAR VOLUME 87 fl (80-97); MONOCYTES % (AUTO) 13.5 % (3-13); PLATELET COUNT 351 10^3/uL (150-450); RED BLOOD COUNT 4.37 10^6/uL (3.72-5.28); SEGMENTED NEUTROPHILS % (AUTO) 44.9 % (42-78); TOTAL CELLS COUNTED % (AUTO) 100 %; WHITE BLOOD COUNT 5.9 10^3/uL (4.0-10.5)
[2020-07-20 10:48] LABS: ALBUMIN 4.2 g/dL (3.5-5.0); ALKALINE PHOSPHATASE 73 U/L (38-126); ASPARTATE AMINO TRANSFERASE 30 U/L (14-36); BILIRUBIN,DIRECT 0.2 mg/dL (0.0-0.4); BILIRUBIN,TOTAL 0.6 mg/dL (0.2-1.3); BLOOD UREA NITROGEN 15 mg/dL (7-20); CALCIUM 9.7 mg/dL (8.4-10.2); CHOLESTEROL 302.49 mg/dL (0-200); GLUCOSE 98 mg/dL (75-110); IRON(TIBC) 79.6 ug/dL (37-170); POTASSIUM 4.7 mmol/L (3.6-5.0); TRIGLYCERIDES 200 mg/dL (<150)
[2020-07-20 10:58] LABS: CARBON DIOXIDE 34 mmol/L (22-30); CHLORIDE 100 mmol/L (98-107)
[2020-07-20 11:06] LABS: DIRECT LDL 156 mg/dL (<100)
[2020-07-20 11:15] LABS: FREE T4 (FREE THYROXINE) 1.61 ng/dL (0.78-2.19)
[2020-07-20 11:29] LABS: THYROID STIMULATING HORMONE 0.96 uIU/mL (0.47-4.68)
[2020-07-20 11:35] LABS: ANION GAP 2 (5-19)
== END ==
LOC: OD 09:06
PROVIDERS: ATTEND Family Medicine
DX: E03.9 Hypothyroidism, unspecified (principal); E78.2 Mixed hyperlipidemia; E55.9 Vitamin D deficiency, unspecified; Z13.1 Encounter for screening for diabetes mellitus; E61.9 Deficiency of nutrient element, unspecified
CPT/HCPCS: 36415; 80053; 80061; 82306; 82728; 83540; 83550; 84439; 84443; 85025